=== PATIENT | female | born 1985 | race Caucasian/White ===

== ENCOUNTER → 2019-10-31 08:35 | Outpatient (CLI) | payer BC ==
[2019-10-31 09:26] LABS: ALBUMIN 2.9 g/dL (3.4-5.0); BILIRUBIN - DIRECT 0.06 mg/dL (0.00-0.30); BILIRUBIN - INDIRECT 0.08 mg/dL (0.00-1.00); BILIRUBIN - TOTAL 0.14 mg/dL (0.2-1.3); PROTEIN - SERUM 7.6 g/dL (6.4-8.2)
== END | disposition home or self-care (01) ==
LOC: D.LAB 08:35 → D.US 09:00
PROVIDERS: ATTEND Internal Medicine Gastroenterology
DX: K76.0 Fatty (change of) liver, not elsewhere classified (principal)

== ENCOUNTER → 2019-12-06 07:24 | Outpatient (CLI) | payer BC | END | disposition home or self-care (01) | LOC: D.NM 07:24 | PROVIDERS: ATTEND Internal Medicine Gastroenterology | DX: R11.0 Nausea (principal); R10.13 Epigastric pain; K76.0 Fatty (change of) liver, not elsewhere classified ==